=== PATIENT | female | born 1945 | race African-American/Black ===

== ENCOUNTER 2018-07-27 18:02 | Emergency (ER) | payer MEDICARE, MEDICAID | END 2018-07-27 18:30 | disposition home or self-care (01) | LOC: MADERS 18:02 | DX: S86.911A Strain of unspecified muscle(s) and tendon(s) at lower leg level, right leg, initial encounter (principal); Z79.84 Long term (current) use of oral hypoglycemic drugs; Z79.82 Long term (current) use of aspirin; Z79.899 Other long term (current) drug therapy; X50.1XXA Overexertion from prolonged static or awkward postures, initial encounter | CPT/HCPCS: 99283 ==

== ENCOUNTER 2018-09-07 11:34 | Inpatient (IN) | payer MEDICARE ==
[2018-09-07] MEDS ORDERED: Senokot S 8.6-50 MG TAB PO PRN (13:25)
[2018-09-07] MEDS ORDERED: Bisacodyl 5 MG TAB PO PRN (13:25)
[2018-09-07] MEDS ORDERED: Ondansetron ODT 4 MG TAB PO PRN (13:25)
[2018-09-07] MEDS ORDERED: Dextrose 50% Abboject 50 ML SYRINGE SLOW IVP PRN (13:28)
[2018-09-07] MEDS ORDERED: Dextrose 5% in Water 1,000 ML IV PRN (13:28)
[2018-09-07] MEDS: HYDROcodone/Acetaminophen 10/325 mg Tablet PO PRN ×3 (14:13→21:10)
[2018-09-07] MEDS: metFORMIN 500 MG TAB PO SCH (17:02)
[2018-09-07] MEDS ORDERED: Non-Formulary Item 1 EACH (Metformin Hcl [Metformin Hcl] 500 MG) PO SCH (21:00)
[2018-09-07] MEDS: Famotidine 20 MG TAB PO SCH (21:09)
[2018-09-07] MEDS: Gabapentin 300 MG CAP PO SCH (21:09)
[2018-09-07] MEDS: Aspirin 81 mg Enteric Coated Tablet PO SCH (21:09)
[2018-09-08] MEDS: Levothyroxine Sodium 25 MCG TAB PO SCH (05:14)
[2018-09-08] MEDS: Levothyroxine Sodium 112 MCG TAB PO SCH (05:14)
[2018-09-08] MEDS: HYDROcodone/Acetaminophen 10/325 mg Tablet PO PRN ×4 (07:28→23:24)
[2018-09-08] MEDS: metFORMIN 500 MG TAB PO SCH ×2 (07:39→16:03)
[2018-09-08] MEDS: Amlodipine 5 MG TAB PO SCH (08:35)
[2018-09-08] MEDS: Gabapentin 300 MG CAP PO SCH ×2 (08:37→20:27)
[2018-09-08] MEDS: Famotidine 20 MG TAB PO SCH ×2 (08:37→20:27)
[2018-09-08] MEDS: Aspirin 81 mg Enteric Coated Tablet PO SCH ×2 (08:37→20:27)
[2018-09-08] MEDS ORDERED: Non-Formulary Item 1 EACH (Amlodipine Besylate [Amlodipine Besylate] 2.5 MG) PO SCH (09:00)
[2018-09-08] MEDS ORDERED: Non-Formulary Item 1 EACH (Levothyroxine Sodium [Synthroid] 137 MCG) PO SCH (09:00)
[2018-09-08 14:14] VITALS: BMI 30.6
[2018-09-08] MEDS ORDERED: HYDROcodone/Acetaminophen 10/325 mg Tablet PO SCH (19:30)
[2018-09-09] MEDS: HYDROcodone/Acetaminophen 10/325 mg Tablet PO PRN ×5 (03:37→20:55)
[2018-09-09] MEDS: Levothyroxine Sodium 25 MCG TAB PO SCH (05:54)
[2018-09-09] MEDS: Levothyroxine Sodium 112 MCG TAB PO SCH (05:54)
[2018-09-09] MEDS: metFORMIN 500 MG TAB PO SCH ×2 (07:40→16:19)
[2018-09-09] MEDS: Famotidine 20 MG TAB PO SCH ×2 (07:41→20:54)
[2018-09-09] MEDS: Amlodipine 5 MG TAB PO SCH (07:41)
[2018-09-09] MEDS: Gabapentin 300 MG CAP PO SCH ×2 (07:41→20:54)
[2018-09-09] MEDS: Aspirin 81 mg Enteric Coated Tablet PO SCH ×2 (07:42→20:54)
[2018-09-10] MEDS: HYDROcodone/Acetaminophen 10/325 mg Tablet PO PRN ×5 (00:49→20:11)
[2018-09-10] MEDS: Levothyroxine Sodium 25 MCG TAB PO SCH (05:07)
[2018-09-10] MEDS: Levothyroxine Sodium 112 MCG TAB PO SCH (05:08)
[2018-09-10] MEDS: Amlodipine 5 MG TAB PO SCH (09:40)
[2018-09-10] MEDS: Aspirin 81 mg Enteric Coated Tablet PO SCH ×2 (09:40→20:06)
[2018-09-10] MEDS: Gabapentin 300 MG CAP PO SCH ×2 (09:40→20:06)
[2018-09-10] MEDS: Famotidine 20 MG TAB PO SCH ×2 (09:40→20:06)
[2018-09-10] MEDS: metFORMIN 500 MG TAB PO SCH ×2 (09:40→17:27)
--- NOTE | 2018-09-10 11:01 | HP ---
PRIMARY CARE PHYSICIAN: Dr. Mag Dominguez. REASON FOR ADMISSION: For skilled rehabilitation at [facility] , for physical deconditioning and gait instability, status post right total knee replacement. BRIEF HOSPITAL HISTORY AND PHYSICAL: The patient is a 72-year-old female with right knee arthritis, diabetes type 2, hypertension, and history of previous stroke. The patient had presented for an elective total right knee arthroplasty. The patient had procedure done by Dr. Idris Thomas on September 04, 2018. The patient tolerated the procedure well, but postoperatively, she had elevated blood pressure. The patient did not have any vomiting, diarrhea, chest pain, or palpitations. The patient, due to deconditioning, was recommended to have skilled rehabilitation prior to discharge back to the home. Upon evaluation of the patient today, she is excited to be in rehab. She complains of pain to the right knee. She complains of some constipation and states she has not had a bowel movement since she had it prior to having the surgery. Denies any nausea. Denies any vomiting. Denies any fevers, chest pain, or shortness of breath. PAST MEDICAL HISTORY: Hypertension, hyperlipidemia, hypothyroidism, diabetes type 2, asthma, history of previous stroke without any residual, diverticulosis, and diverticulitis. PAST SURGICAL HISTORY: Hysterectomy, thyroidectomy with injury to the right recurrent laryngeal nerve. SOCIAL HISTORY: The patient is . She lives with her children. No tobacco use. No illicit drug use. FAMILY HISTORY: Father from myocardial infarction. Mother has diabetes and hypertension, and some cancer in the family. ALLERGIES: NO KNOWN DRUG ALLERGIES. MEDICATIONS: 1. Amlodipine 2.5 daily. 2. Aspirin 81 b.i.d. 3. Allendale 1-2 tabs q.4 hours p.r.n. 4. Synthroid 137 mcg daily. 5. DuoNeb q.6 p.r.n. 6. Gabapentin 300 b.i.d. CODE STATUS: The patient is a full code. REVIEW OF SYSTEMS: CONSTITUTIONAL: No fevers. The patient complains of weakness and pain to the right knee. HEENT: No nosebleed, trouble swallowing, or oral pain. No vision changes, hearing changes, or dysphagia. CHEST: No chest pain, shortness of breath, palpitation, or dizziness. RESPIRATORY: No cough, shortness of breath, or wheezing. ABDOMEN: No abdominal pain, but complains of constipation. No nausea. No vomiting. GENITOURINARY: Denies any dysuria or hematuria. MUSCULOSKELETAL: Pain and swelling to the right knee. SKIN: No rashes or lesions. NEUROLOGICAL: She complains of some numbness, someone burning sensation to her feet at night. No numbness, tingling, or weakness. PHYSICAL EXAMINATION: VITAL SIGNS: Blood pressure 156/89, O2 of 95% on room air, temperature 98.3, pulse 102, respiration 20. GENERAL: The patient is a well-developed, alert, awake, oriented x3, female, lying in bed, in mild distress due to pain to her knee. HEENT: Pupils round, reactive, equal, to light. Oropharynx clear without lesions , erythema, or exudate. NECK: Supple. No lymphadenopathy. No thyroid nodules. No JVD. HEART: Regular rate and rhythm. No murmurs, rubs, or gallops. LUNGS: Clear to auscultation bilaterally. No wheezing, crackles, or rhonchi. ABDOMEN: Positive bowel sounds. Nontender, nondistended. No hepatosplenomegaly or masses. EXTREMITIES: No clubbing, cyanosis, or edema. She does have postsurgical dressings to the right knee and leg that is clean and intact. Dressing removed and surgical site intact. No dehiscence. Swelling noted to the knee and lower right leg. SKIN: No rashes or lesions noted. NEUROLOGICAL: The patient is alert, awake, and oriented x3. Cranial nerves 2 through 12 grossly intact. ASSESSMENT: 1. Physical debility. 2. Gait instability. 3. Status post right knee total arthroplasty. 4. Hypertension, uncontrolled. 5. Diabetes type 2. 6. Hyperlipidemia. 7. Chronic kidney disease. PLAN: The patient is being admitted to [facility] for rehabilitation and gait strengthening. We will consult Physical Therapy for strengthening in order to gain modified independence with gait and Occupational Therapy to help with activities of daily living prior to returning to the home. We will manage pain with [place]ale 10/325 as needed. We will recommend ice packs to the knee. We will resume home medications. We will place the patient on Pepcid b.i.d. for GI prophylaxis and aspirin 81 mg b.i.d. for DVT prophylaxis. ESTIMATED LENGTH OF STAY: 2-3 weeks. DISPOSITION: Home. CODE STATUS: The patient is a full code. Job ID: [id number] MTDD
[2018-09-11] MEDS: HYDROcodone/Acetaminophen 10/325 mg Tablet PO PRN ×5 (00:04→20:28)
[2018-09-11] MEDS: Levothyroxine Sodium 112 MCG TAB PO SCH (06:00)
[2018-09-11] MEDS: Levothyroxine Sodium 25 MCG TAB PO SCH (06:00)
[2018-09-11] MEDS: Aspirin 81 mg Enteric Coated Tablet PO SCH ×2 (07:26→20:27)
[2018-09-11] MEDS: Famotidine 20 MG TAB PO SCH ×2 (07:26→20:27)
[2018-09-11] MEDS: Gabapentin 300 MG CAP PO SCH ×2 (07:26→20:28)
[2018-09-11] MEDS: metFORMIN 500 MG TAB PO SCH ×2 (08:46→16:33)
[2018-09-11] MEDS: Amlodipine 5 MG TAB PO SCH (08:46)
[2018-09-12] MEDS: Levothyroxine Sodium 25 MCG TAB PO SCH (05:25)
[2018-09-12] MEDS: Levothyroxine Sodium 112 MCG TAB PO SCH (05:25)
[2018-09-12] MEDS: HYDROcodone/Acetaminophen 10/325 mg Tablet PO PRN ×4 (07:35→23:47)
[2018-09-12] MEDS: Amlodipine 5 MG TAB PO SCH (08:38)
[2018-09-12] MEDS: Gabapentin 300 MG CAP PO SCH ×2 (08:38→20:17)
[2018-09-12] MEDS: Aspirin 81 mg Enteric Coated Tablet PO SCH ×2 (08:39→20:17)
[2018-09-12] MEDS: metFORMIN 500 MG TAB PO SCH ×2 (08:39→16:18)
[2018-09-12] MEDS: Famotidine 20 MG TAB PO SCH ×2 (08:39→20:19)
[2018-09-13] MEDS: HYDROcodone/Acetaminophen 10/325 mg Tablet PO PRN ×4 (05:22→20:34)
[2018-09-13] MEDS: Levothyroxine Sodium 112 MCG TAB PO SCH (05:23)
[2018-09-13] MEDS: Levothyroxine Sodium 25 MCG TAB PO SCH (05:23)
[2018-09-13] MEDS: metFORMIN 500 MG TAB PO SCH ×2 (08:38→16:07)
[2018-09-13] MEDS: Aspirin 81 mg Enteric Coated Tablet PO SCH ×2 (08:38→20:35)
[2018-09-13] MEDS: Gabapentin 300 MG CAP PO SCH ×2 (08:38→20:35)
[2018-09-13] MEDS: Amlodipine 5 MG TAB PO SCH (08:39)
[2018-09-13] MEDS: Famotidine 20 MG TAB PO SCH ×2 (08:39→20:35)
[2018-09-14] MEDS: HYDROcodone/Acetaminophen 10/325 mg Tablet PO PRN ×2 (05:11→08:32)
[2018-09-14] MEDS: Levothyroxine Sodium 112 MCG TAB PO SCH (05:12)
[2018-09-14] MEDS: Levothyroxine Sodium 25 MCG TAB PO SCH (05:12)
[2018-09-14 07:09] VITALS: BP 132/77; TEMP 97.2
[2018-09-14] MEDS: metFORMIN 500 MG TAB PO SCH (08:31)
[2018-09-14] MEDS: Aspirin 81 mg Enteric Coated Tablet PO SCH (08:31)
[2018-09-14] MEDS: Famotidine 20 MG TAB PO SCH (08:31)
[2018-09-14] MEDS: Amlodipine 5 MG TAB PO SCH (08:31)
[2018-09-14] MEDS: Gabapentin 300 MG CAP PO SCH (08:31)
--- NOTE | 2018-09-14 21:12 | DIS ---
DATE OF ADMISSION: 09/07/2018 DATE OF DISCHARGE: 09/14/2018 DISCHARGING PHYSICIAN: Jason Blake MD PRIMARY CARE PHYSICIAN: Mag Dominguez MD DISCHARGE DIAGNOSES: 1. Gait instability, improving. 2. Status post right total knee arthroplasty. 3. Hypertension. 4. Diabetes, type 2. 5. Chronic kidney disease. 6. Hyperlipidemia. DISCHARGE MEDICATIONS: 1. Benavides 10/325 two tabs b.i.d. p.r.n. pain, #30. 2. Synthroid 137 mcg daily. 3. Gabapentin 300 b.i.d. 4. Aspirin 81 mg b.i.d. 5. Amlodipine 2.5 mg daily. 6. Metformin 500 mg b.i.d. DISCHARGE ACTIVITY: 1. Ad charles with four-wheeled rolling walker. 2. Resume outpatient physical therapy at [facility]. 3. Follow up with orthopedic doctor within four weeks. 4. Follow up with primary care physician within one week. BRIEF HOSPITAL COURSE: Ms. Kline is a 72-year-old female, who went in for an elective right knee arthroplasty, and this was done on [address] Thomas. The patient postoperatively had some elevated blood pressure, and her medication was adjusted in the hospital. She was noted to need some rehabilitation prior to discharge back to her home. The patient was admitted here on the 07 of September, and she was able to participate with physical therapy. She did nicely with physical therapy. On day of discharge, the patient was able to walk with a rolling walker, 400 feet without any issues. She was safe and steady with her balance per Physical Therapy notes. The patient chose to be discharged home today and follow up with outpatient physical therapy at [facility]. The patient during hospitalization was noted to need pain medicines frequently, and she was subsequently discharged with a 30-day supply of hydrocodone and advised to follow up with her PCP. During hospitalization, blood pressure was much improved and no more adjustments needed to be made. Swelling to her right knee and leg improved, and the incision site was healing nicely with no dehiscence or any signs of infection. Vital signs upon discharge; temperature 97.2, pulse 74, respirations 16, O2 of 97% on room air, and blood pressure 132/77. The patient was discharged home in a stable condition with her family members. Job ID: [id number] DENA
== END 2018-09-14 13:45 | disposition home or self-care (01) | DRG 561 ==
LOC: MADMS 11:34
PROVIDERS: ADMIT Family Medicine; ATTEND Family Medicine
DX: Z47.1 Aftercare following joint replacement surgery (principal); R53.81 Other malaise; R26.81 Unsteadiness on feet; E03.9 Hypothyroidism, unspecified; E78.5 Hyperlipidemia, unspecified; E11.22 Type 2 diabetes mellitus with diabetic chronic kidney disease; J45.909 Unspecified asthma, uncomplicated; I12.9 Hypertensive chronic kidney disease with stage 1 through stage 4 chronic kidney disease, or unspecified chronic kidney disease; N18.9 Chronic kidney disease, unspecified; Z96.651 Presence of right artificial knee joint; Z86.73 Personal history of transient ischemic attack (TIA), and cerebral infarction without residual deficits; Z90.710 Acquired absence of both cervix and uterus; Z90.89 Acquired absence of other organs; Z79.82 Long term (current) use of aspirin; Z79.899 Other long term (current) drug therapy
CPT/HCPCS: 36416

== ENCOUNTER 2019-01-16 15:20 | Outpatient (CLI) | payer MEDICARE ==
--- NOTE | 2019-01-16 15:37 | RAD ---
EXAM: Chest 2 views: HISTORY: Pneumonia COMPARISON: 11/11/2002 FINDINGS: There is a normal-sized cardiomediastinal silhouette. There is no evidence of consolidation, mass, or pleural effusion. The bones are unremarkable. IMPRESSION: No evidence of acute cardiopulmonary disease
== END 2019-01-16 15:21 | disposition home or self-care (01) ==
LOC: MADRAD 15:20
PROVIDERS: ATTEND Nurse Practitioner Adult Health
DX: J18.1 Lobar pneumonia, unspecified organism (principal)
CPT/HCPCS: 71046

== ENCOUNTER 2025-04-03 15:53 | Emergency (ER) | payer MEDICARE, MEDICAID ==
[2025-04-03] MEDS ORDERED: Aspirin Chewable 81 MG TAB ONE (16:33)
[2025-04-03 16:42] LABS: Hematocrit 42.9 % (36.0-47.0); Hemoglobin 13.5 g/dL (12.0-16.0); Mean Corpuscular Hemoglobin 30.0 pg (27.0-31.0); Mean Corpuscular Volume 95.4 fl (78.0-98.0); Platelet Count 231 10x3/uL (130-400); Red Blood Cell (RBC) Count 4.50 mill/uL (4.20-5.40); White Blood Cell (WBC) Count 12.1 10x3/uL (4.8-10.8)
[2025-04-03 16:50] LABS: MDiff Complete? YES; Manual Diff?? YES; Platelet Adequacy Comment Appears Adequate
[2025-04-03 16:53] LABS: ALT (SGPT) 14 U/L (Less than 34); AST (SGOT) 41 U/L (11-34); Albumin 4.0 g/dL (3.1-4.5); Alkaline Phosphatase 89 U/L (40-110); Anion Gap 20 mmol/L (10-20); BUN (Urea Nitrogen) 18 mg/dL (9.8-20.1); Bilirubin, Total 0.3 mg/dL (0.3-1.2); Calc. Creatinine Clearance 0 mL/min (70-130); Calcium 9.5 mg/dL (7.8-10.44); Carbon Dioxide 22 mmol/L (23-31); Chloride 100 mmol/L (98-107); Globulin 4.2 g/dL (2.4-3.5); Glucose 111 mg/dL (83-110); Lipase 36 U/L (8-78); Potassium 3.6 mmol/L (3.5-5.1); Sodium 138 mmol/L (136-145)
[2025-04-03 17:53] LABS: Troponin I Less than 0.010 ng/mL (< 0.028)
[2025-04-03 20:09] LABS: Troponin I Less than 0.010 ng/mL (< 0.028)
== END 2025-04-03 22:34 | disposition short-term general hospital (02) ==
LOC: MADERS 15:53
DX: R07.89 Other chest pain (principal); E78.00 Pure hypercholesterolemia, unspecified; E03.9 Hypothyroidism, unspecified; I10 Essential (primary) hypertension; E11.42 Type 2 diabetes mellitus with diabetic polyneuropathy; Z79.890 Hormone replacement therapy; Z79.84 Long term (current) use of oral hypoglycemic drugs; Z79.82 Long term (current) use of aspirin; Z79.51 Long term (current) use of inhaled steroids; Z79.899 Other long term (current) drug therapy
CPT/HCPCS: 36415; 71045; 80053; 83690; 84484; 85025; 93005; 94760